=== PATIENT | female | born 1995 | race Caucasian/White ===

== ENCOUNTER 2017-12-26 18:46 | Emergency (ER) | payer BC ==
--- NOTE | 2017-12-26 19:51 | EDM.PDOC ---
ED HPI GENERAL MEDICAL PROBLEM - General Chief Complaint: Flank Pain Stated Complaint: RIGHT FLANK PAIN Time Seen by Provider: 12/26/17 19:35 Source of Information: Reports: Patient History Limitations: Reports: No Limitations - History of Present Illness INITIAL COMMENTS - FREE TEXT/NARRATIVE: 21 yr female presents with right flank pain for a couple days, that has progressively gotten worse. States she tried to go to work today and pain worsened and came to ER. States she has had pain like this before and was an infection. 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 When pain didn't improve she came in. - Related Data Allergies Allergy/AdvReac Type Severity Reaction Status Date / Time latex Allergy Intermediate Swelling Verified 03/02/15 12:15 Penicillins Allergy Anaphylactic Verified 03/02/15 12:15 Shock Sulfa (Sulfonamide Allergy Rash Verified 12/26/17 19:42 Antibiotics) Home Meds: Home Meds Ethinyl Estradiol/Etonogestrel [Nuvaring Vaginal Ring] 1 ea VAG ASDIRECTED 05/08 [History] Social & Family History - Tobacco Use Smoking Status *Q: Never Smoker Second Hand Smoke Exposure: No - Alcohol Use Days Per Week of Alcohol Use: 0 - Recreational Drug Use Recreational Drug Use: No ED ROS GENERAL - Review of Systems Review Of Systems: See Below Constitutional: Reports: No Symptoms HEENT: Reports: No Symptoms Respiratory: Reports: No Symptoms Cardiovascular: Reports: No Symptoms GI/Abdominal: Reports: No Symptoms : Reports: Flank Pain. Denies: Discharge, Dysuria Skin: Reports: No Symptoms Neurological: Reports: No Symptoms ED EXAM, RENAL/ - Physical Exam Exam: See Below Exam Limited By: No Limitations General Appearance: Alert, No Apparent Distress Ears: Hearing Grossly Normal Nose: Normal Inspection Throat/Mouth: No Airway Compromise Head: Atraumatic, Normocephalic Neck: Normal Inspection, Supple, Non-Tender Respiratory/Chest: No Respiratory Distress, Lungs Clear, Normal Breath Sounds Cardiovascular: Regular Rate, Rhythm GI/Abdominal: Other (tender to right lower abdomen) Back Exam: Other (pain to right lower back) Extremities: Normal Inspection, Normal Range of Motion Neurological: Alert, Oriented, Normal Cognition, Normal Gait Course - Vital Signs Last Recorded V/S: Last Vital Signs Temp 98.5 F 12/26/17 20:01 Pulse 70 12/26/17 20:01 Resp 20 12/26/17 20:01 BP 111/72 12/26/17 20:01 Pulse Ox 100 12/26/17 20:01 - Orders/Labs/Meds Labs: Laboratory Tests 12/26/17 12/26/17 12/26/17 Range/Units 19:55 19:55 19:55 WBC 7.8 D (4.0-11.0) K/uL RBC 4.04 (3.80-5.80) M/uL Hgb 13.1 (11.5-16.5) g/dL Hct 37.7 (37.0-47.0) % MCV 93 (76-96) fL MCH 32.4 H (27.0-32.0) pg MCHC 34.7 (31.0-35.0) g/dL RDW 12.2 (11.0-16.0) % Plt Count 275 D (150-500) K/uL MPV 9.0 (6.0-10.0) fL Neut % (Auto) 63.3 (45.0-70.0) % Lymph % (Auto) 25.2 (20.0-40.0) % [place] % (Auto) 10.3 H (3.0-10.0) % Eos % (Auto) 1.1 (1.0-5.0) % Baso % (Auto) 0.1 (0.0-0.5) % Neut # (Auto) 4.95 (2.00-7.50) K/uL Lymph # (Auto) 1.97 (1.50-4.00) K/uL [place] # (Auto) 0.81 H (0.20-0.80) K/uL Eos # (Auto) 0.09 (0.04-0.40) K/uL Baso # (Auto) 0.01 L (0.02-0.10) K/uL Sodium 140 (136-145) mmol/L Potassium 4.0 (3.5-5.1) mmol/L Chloride 104 (98-107) mmol/L Carbon Dioxide 26.3 (21.0-32.0) mmol/L Anion Gap 13.7 (5.0-15.0) mmol/L BUN 10 D (8-26) mg/dL Creatinine 0.86 D (0.55-1.02) mg/dL Est Cr Clr Drug Dosing 73.08 mL/min Estimated GFR (MDRD) > 60 (>60) MLS/MIN BUN/Creatinine Ratio 11.6 (6-25) Glucose 107 H (74-100) mg/dL Calcium 9.0 (8.5-10.1) mg/dL Urine Color Yellow Urine Appearance Clear (CLEAR) Urine pH 6.5 (5.0-8.0) Ur Specific [place] 1.020 (1.003-1.030) Urine Protein Negative (NEGATIVE) mg/dL Urine Glucose (UA) Negative (NEGATIVE) mg/dL Urine Ketones Negative (NEGATIVE) mg/dL Urine Occult Blood Moderate H (NEGATIVE) Urine Nitrite Negative (NEGATIVE) Urine Bilirubin Negative (NEGATIVE) Urine Urobilinogen 0.2 (0.2-1.0) E.U./dL Ur Leukocyte Esterase Negative (NEGATIVE) Urine RBC 0-5 H /HPF Urine WBC 0-5 H /HPF Ur Squamous Epith Cells Moderate /HPF Urine Bacteria Few /HPF - Re-Assessments/Exams Free Text/Narrative Re-Assessment/Exam: 12/26/17 21:07 Reviewed lab results with pt. Hematuria noted without leuk est and no nitrites. Discussed option of Toradol for relief of pain. Pt declines this at this time. Recommend use of tylenol, Aleve or Ibuprofen as needed for lower back pain. Recommend RTC if symptoms persist for further work-up, may need U/S. Pt states she does have PCOS and maybe this is causing her some pain at this time. Departure - Departure Time of Disposition: 20:28 Disposition: Home, Self-Care 01 Condition: Good Clinical Impression: Low back pain - Discharge Information Referrals: PCP,None [Primary Care Provider] - Forms: ED Department Discharge Additional Instructions: Take Aleve twice a day as needed for pain or Ibuprophen 600mg 3 times a day for pain as needed. Take with food. Return to clinic if discomfort/pain persists.
[2017-12-26 20:02] VITALS: BP 111/72
== END 2017-12-26 20:28 | disposition home or self-care (01) ==
LOC: LB.ED 18:46
DX: M54.5 Low back pain (principal); Z88.0 Allergy status to penicillin; Z91.040 Latex allergy status; Z88.2 Allergy status to sulfonamides
CPT/HCPCS: 36415; 80048; 81001; 85025; 99284